=== PATIENT | female | born 1940 | race African-American/Black ===

== ENCOUNTER 2019-07-18 16:29 | Inpatient (IN) | payer MEDICARE, BC ==
[~2019-07-18] VITALS: Ht 157.5 cm; Wt 106.6 kg
[~2019-07-18 16:29] MED LIST: ASPIR 8181 MG ORAL; BLOOD PRESSURE PILL PO; LOVASTATIN40 MG ORAL; METFORMIN HCL500 M1 ORAL; PREVACID30 MG ORAL; [UNRECOGNIZED DRUG - REMARK] PO
[2019-07-18 16:43] VITALS: BP 141/74
--- NOTE | 2019-07-18 16:43 | NUR ---
ED Nurse Note: PT walked in to ED for C/O non radiating intermittent chest pain x 2 days. denies any cough.
[2019-07-18] MEDS ORDERED: VITAMIN D310 MCG ORAL (17:11)
--- NOTE | 2019-07-18 17:35 | NUR ---
ED Nurse Note: blood sample collected and sent to lab. pt unable to provide urine sample at this time.
[2019-07-18 18:05] LABS: EOSINOPHILS % (AUTO) 1.5 % (0.0-3.0); HEMATOCRIT 43.3 % (37.0-47.0); HEMOGLOBIN 13.8 G/DL (12.0-16.0); LYMPHOCYTES % (AUTO) 19.8 % (20.0-45.0); MEAN CORPUSCULAR VOLUME 92 FL (80-99); MONOCYTES % (AUTO) 5.1 % (1.0-10.0); NEUTROPHILS % (AUTO) 72.6 % (45.0-75.0); PLATELET COUNT 262 K/UL (150-450); RED BLOOD COUNT 4.72 M/UL (4.20-5.40); RED CELL DISTRIBUTION WIDTH 15.4 % (11.6-14.8); WHITE BLOOD COUNT 11.7 K/UL (4.8-10.8)
--- NOTE | 2019-07-18 18:07 | Diagnostic Imaging Report ---
Indication: Chest pain Technique: One view of the chest Comparison: 08/24/2015 Findings: There is some scarring or atelectasis at the left lateral lung base. Lungs and pleural spaces are otherwise. The heart size is upper limits of normal Impression: No acute process
[2019-07-18 18:08] LABS: ANION GAP 12 mmol/L (5-15); BLOOD UREA NITROGEN 15 mg/dL (7-18); CALCIUM 9.3 MG/DL (8.5-10.1); CARBON DIOXIDE 24 MMOL/L (21-32); CHLORIDE 103 MMOL/L (98-107); CREATININE 1.2 MG/DL (0.55-1.30); POTASSIUM 3.8 MMOL/L (3.5-5.1); SODIUM 139 MMOL/L (136-145)
[2019-07-18 18:23] LABS: ALANINE AMINOTRANSFERASE 14 U/L (12-78); ALBUMIN 3.2 G/DL (3.4-5.0); ALBUMIN/GLOBULIN RATIO 0.8 (1.0-2.7); ALKALINE PHOSPHATASE 100 U/L (46-116); ASPARTATE AMINO TRANSFERASE 27 U/L (15-37); BILIRUBIN,TOTAL 0.7 MG/DL (0.2-1.0); CKMB 0.8 NG/ML (0.0-3.6); CREATINE KINASE 105 U/L (26-308); FERRITIN 27 NG/ML (8-388)
--- NOTE | 2019-07-18 18:56 | Emergency Room Report ---
History of Present Illness General Chief Complaint: Chest Pain Source: Patient Present Illness HPI 78-year-old female with history of hypothyroidism, type 2 diabetes, and hypertension which taking medication and controlled here complaining 2 days palpitation and chest pain without radiation to the arm and jaw. Rates the pain 10 out of 10 and shortness of breath involved. Patient reports that she started taking methimazole about 6 weeks ago given by her primary doctor as her TSH was falling low due to levothyroxine. Patient used to take metoprolol for palpitation however was recently changed to propranolol by primary doctor patient just picked up the propranolol from the pharmacy today however has not taken it yet. Denies any headache and dizziness. Denies any unilateral generalized weakness. History of WI that occurred 4 years ago and patient currently taking daily dose of aspirin. Up-to-date with cardiology visits. History of tobacco smoke. Denies any tobacco smoke, marijuana use, drug use, or alcohol intake recently. Is afebrile, denies cough and congestion, denies diarrhea, nausea vomiting, loss of taste and smell. Allergies: Coded Allergies: PENICILLINS (Verified Allergy, Intermediate, 07/31/13) SKIN RASH AND HIVES COVID-19 Screening Contact w/high risk pt: No Recent Travel to affected area: No Experienced COVID-19 symptoms?: Yes COVID-19 symptoms experienced: Shortness of Breath COVID-19 Testing performed RN LAB: No COVID-19 Screening: Negative COVID-19 COVID-19 Testing Source: Blood test in may Patient History Past Medical History: see triage record Past Surgical History: none Pertinent Family History: none Social History: Reports: smoking - hx of tobacco smoke Now: No Immunizations: UTD Reviewed Nursing Documentation: PMH: Agreed; PSxH: Agreed Nursing Documentation-PMH Hx Cardiac Problems: Yes - WI, Stent Hx Hypertension: Yes Hx Pacemaker: No Hx Asthma: No Hx COPD: No Hx Diabetes: Yes - DM II Hx Cancer: No Hx Gastrointestinal Problems: Yes Hx Neurological Problems: Yes Review of Systems All Other Systems: negative except mentioned in HPI Physical Exam Vital Signs Date Time Temp Pulse Resp B/P (MAP) Pulse Ox O2 Delivery O2 Flow Rate FiO2 20 16:34 98.4 110 20 135/78 (97) 92 Room Air Sp02 EP Interpretation: reviewed, abnormal - Orthostatic 91% General Appearance: no apparent distress, alert, GCS 15, non-toxic Head: normocephalic, atraumatic Eyes: bilateral eye normal inspection, bilateral eye PERRL ENT: hearing grossly normal, normal pharynx, no angioedema, normal voice Neck: full range of motion, supple, supple/symm/no masses Respiratory: chest non-tender, lungs clear, normal breath sounds, no rhonchi, no retraction, speaking full sentences Cardiovascular #1: regular rate, rhythm, no edema Gastrointestinal: non tender, soft, no mass Rectal: deferred Genitourinary: no CVA tenderness Musculoskeletal: back normal Neurologic: alert, motor strength/tone normal, oriented x3, sensory intact, responsive, speech normal Psychiatric: judgement/insight normal, memory normal, mood/affect normal, no suicidal/homicidal ideation Skin: no rash Lymphatic: no adenopathy Medical Decision Making PA Attestation All my diagnosis and treatment plans were reviewed ad discussed with my supervising physician Dr. Ernandez Diagnostic Impression: Primary Impression: Palpitation Additional Impression: Lymphopenia ER Course 78-year-old female with history of hypothyroidism, type 2 diabetes, and hypertension which taking medication and controlled here complaining 2 days palpitation and chest pain without radiation to the arm and jaw. Rates the pain 10 out of 10 and shortness of breath involved. Patient reports that she started taking methimazole about 6 weeks ago given by her primary doctor as her TSH was falling low due to levothyroxine. Patient used to take metoprolol for palpitation however was recently changed to propranolol by primary doctor patient just picked up the propranolol from the pharmacy today however has not taken it yet. Denies any headache and dizziness. Denies any unilateral generalized weakness. History of WI that occurred 4 years ago and patient currently taking daily dose of aspirin. Up-to-date with cardiology visits. History of tobacco smoke. Denies any tobacco smoke, marijuana use, drug use, or alcohol intake recently. Is afebrile, denies cough and congestion, denies diarrhea, nausea vomiting, loss of taste and smell. Ddx considered but are not limited to: WI, Angina, COPD, GERD,, thyrotoxicosis, coronavirus, pneumonitis Vital signs: are WNL, pt. is afebrile H&PE are most consistent with palpitation, lymphopenia ORDERS: ER chest pain and sepsis order set ED INTERVENTIONS: None required at this time. Patient was admitted with diagnosis of palpitation lymphopenia to Dr. Leigh under supervision of : Awais richardson stable at time of admission EKG Diagnostic Results Rate: normal Rhythm: NSR ST Segments: no acute changes Other Impression No acute ST changes Chest X-Ray Diagnostic Results Chest X-Ray Diagnostic Results : Chest X-Ray Ordered: Yes # of Views/Limited/Complete: 1 View EP Interpretation: Yes PA Xray: Interpretation reviewed, by supervising MD, and agrees with findings. Interpretation: no consolidation, no effusion, no pneumothorax Impression: No acute disease Electronically Signed by: Marisel Jay PA-C Last Vital Signs Date Time Temp Pulse Resp B/P (MAP) Pulse Ox O2 Delivery O2 Flow Rate FiO2 07/18/19 16:43 97 19 Room Air 07/18/19 16:43 98.4 141/74 99 Disposition: ADMITTED INPATIENT Condition: Stable Referrals: Luis Angel Bell MD (PCP) Marisel Preston Jul 18, 2019 18:55
[2019-07-18 19:10] VITALS: BP 132/84
--- NOTE | 2019-07-18 19:10 | NUR ---
ED Nurse Note: Pt seen in bed , no acute distress is noted. VSS as documented.
[2019-07-18 19:51] LABS: APPEARANCE,URINE CLEAR; BILIRUBIN, URINE NEGATIVE (NEGATIVE); NITRITE,URINE NEGATIVE (NEGATIVE)
[2019-07-18 20:07] LABS: GLUCOSE, URINE (UA) NEGATIVE (NEGATIVE); KETONES,URINE 2+ (NEGATIVE); LEUKOCYTE ESTERASE ,URINE 2+ (NEGATIVE); PH,URINE 5 (4.5-8.0); PROTEIN,URINE NEGATIVE (NEGATIVE); UROBILINOGEN,URINE NORMAL MG/DL (0.0-1.0)
[2019-07-18 20:30] LABS: COLOR,URINE YELLOW
[2019-07-18 21:19] VITALS: BP 140/72
--- NOTE | 2019-07-18 21:20 | NUR ---
ED Nurse Note: Pt seen in bed resting, no acute distress is noted. VSS as documented.
--- NOTE | 2019-07-18 22:45 | NUR ---
ED Nurse Note: Report given to JON barnhart.
--- NOTE | 2019-07-18 22:55 | NUR ---
ED Nurse Note: pt taken to room 216 accompanied by manager material and RN in stable condition via gurney with ardiac monitor box. Report given to JON Sifuentes. Belonging list signed off.
--- NOTE | 2019-07-18 23:45 | NUR ---
NURSE NOTES: Received report from GAMA Gao RN. Pt in stable condition, denies pain. Will start plan of care and close monitoring.
[2019-07-19 04:00] VITALS: BP 136/76
[2019-07-19] MEDS: metFORMIN 500mg tab ORAL SCH ×3 (06:24→16:25)
[2019-07-19] MEDS: NovoLOG Insulin Flexpen SUBQ SCH ×4 (06:30→21:00)
[2019-07-19] MEDS ORDERED: NovoLOG Insulin Flexpen SUBQ SCH (06:30)
--- NOTE | 2019-07-19 07:30 | NUR ---
NURSE NOTES: RECEIVED PATIENT A/A/OX4, AMBULATORY WITH STEADY GAIT. NO ACUTE PAIN/DISCOMFORT NOTED. TOLERATING FOOD INTAKE WELL. IV ACCESS PATENT AND INTACT. BED IS IN THE LOWEST POSITION. SIDERAILS ARE UP X2, CALL LIGHT IS WITHIN REACH. WILL CONT TO MONITOR.
--- NOTE | 2019-07-19 07:38 | NUR ---
HAND-OFF: Report given to Crystal Palomares RN. Pt in stable condition. Plan of care endorsed.
[2019-07-19 08:06] VITALS: BP 151/78
[2019-07-19] MEDS: Aspirin EC 81mg tab ORAL SCH (08:15)
[2019-07-19] MEDS: Vitamin D 1000 IU Tab ORAL SCH (08:15)
[2019-07-19] MEDS: Heparin 5000 units/ml inj SUBQ SCH ×2 (08:18→21:00)
[2019-07-19 09:18] LABS: ALANINE AMINOTRANSFERASE 15 U/L (12-78); ALBUMIN/GLOBULIN RATIO 0.8 (1.0-2.7); ALKALINE PHOSPHATASE 93 U/L (46-116); ANION GAP 9 mmol/L (5-15); ASPARTATE AMINO TRANSFERASE 15 U/L (15-37); BLOOD UREA NITROGEN 9 mg/dL (7-18); CALCIUM 8.7 MG/DL (8.5-10.1); CARBON DIOXIDE 27 MMOL/L (21-32); CHLORIDE 105 MMOL/L (98-107); CHOLESTEROL 144 MG/DL (< 200); HDL CHOLESTEROL 50 MG/DL (40-60); POTASSIUM 3.1 MMOL/L (3.5-5.1); SODIUM 141 MMOL/L (136-145); TRIGLYCERIDES 53 MG/DL (30-150)
--- NOTE | 2019-07-19 10:05 | NUR ---
NURSE NOTES: INFORMED DR TAYLOR FOR THE K+3.1 AND MG 1.6 TODAY'S LABS. NEW ORDER OBTAINED AND ENTERED. WILL CONT TO MONITOR.
--- NOTE | 2019-07-19 11:09 | NUR ---
CASE MANAGEMENT:INITIAL REVIEW 78 YR OLD FEMALE FROM HOME CC;CHEST PAIN SI;PALPITATIONS. LYMPHOPENIA. 98.4 110 20 141/74 92% ON RA WBC 11.7 BG 173 BNP 267 ALB 3.2 LDH 336 T SH 25.838 FREE T3 2.0 UA+ KETONES, LEUKOCYTE, WBC TOXICOLOGY ~ NEGATIVE CXR ~ NO ACUTE PROCESS IS;IVF NS BOLUS ADMITTED TO TELEMETRY TELE STATUS DCP;PATIENT IS FROM HOME
[2019-07-19 11:59] VITALS: BP 147/67
--- NOTE | 2019-07-19 13:30 | Consultation ---
DATE OF CONSULTATION: 07/19/2019 PULMONARY CONSULTATION CONSULTING PHYSICIAN: Luis Angel Bell MD REASON FOR ADMISSION: Palpitations, shortness of breath. HISTORY OF PRESENT ILLNESS: This is a 78-year-old female with history of multiple medical problems including history of cardiopulmonary arrest. The patient also with a history of coronary artery disease and stent. The patient presents with tachycardia and palpitations with some chest pain radiating to the arm and jaw. The patient recently diagnosed with hyperthyroidism and started on methimazole by her steel inspector. The patient used to take metoprolol for palpitations that was changed to propranolol. The patient's care discussed and reviewed. The patient denies any headache. No falls. No syncope. As mentioned, the patient has a history of massive PR four years ago, [place] and underwent cardiopulmonary resuscitation and actually survived. The patient otherwise stable. No COVID related symptoms, but the patient does have some shortness of breath. PAST MEDICAL HISTORY: Notable for coronary artery disease, PR, cardiopulmonary arrest, history of coronary artery stent, diabetes, asthma, and history of hyperthyroidism. MEDICATIONS: Reviewed. ALLERGIES: Reviewed. SOCIAL HISTORY: The patient is . She has remote history of smoking. Does not smoke or drink currently. FAMILY HISTORY: Noncontributory to the above. REVIEW OF SYSTEMS: All 10 points were reviewed and otherwise negative. PHYSICAL EXAMINATION: GENERAL: A well-developed female, comfortable at present. VITAL SIGNS: Stable, blood pressure 136/76, pulse 94, respirations 18, temperature 97.9. The patient is off oxygen at present. HEENT: Negative. NECK: Supple. No adenopathy. LUNGS: Fairly clear and symmetric. CARDIAC: S1, S2. Regular rate and rhythm. Soft systolic murmur at left lucero sternal border. ABDOMEN: Soft, nontender, nondistended. EXTREMITIES: No cyanosis, clubbing, or edema. NEUROLOGIC: Grossly nonfocal. LABORATORY DATA: Reviewed. TSH significantly elevated at 25. Free T4 is suppressed. Free T3 is suppressed. Lactic dehydrogenase is 336. Laboratory data reviewed and chemistries are essentially negative. Albumin 3.2. IMPRESSION: History of hyperthyroidism, although currently the patient appears to be hypothyroid overall, palpitations, chest pain with radiation, hypercholesterolemia, and history of coronary artery disease. RECOMMENDATIONS: Serial troponins. Replace thyroid. Discontinue methimazole for now. Beta david and Cardiology evaluation . We will recommend further and discuss and then once stabilized and cleared, we will proceed with discharge planning. Luis Angel Bell M.D. DR: LOLA JOB#: [id number] CC: ARIE
--- NOTE | 2019-07-19 15:01 | NUR ---
NURSE NOTES: RECEIVED A CALL FROM KENNEDY ( JESSICA) REGARDING BLOOD CULTURE RESULT - GRAM POSITIVE COCCI IN CLUSTER. NOTIFIED DR TAYLOR. NEW ORDER OBTAINED. WILL CONT TO MONITOR.
[2019-07-19 15:56] VITALS: BP 156/78
[2019-07-19] MEDS ORDERED: Vancomycin 1.5gm/NS Premix 275 ML IVPB SCH (16:30)
--- NOTE | 2019-07-19 19:19 | NUR ---
HAND-OFF: Report given to Emilee.
--- NOTE | 2019-07-19 19:20 | NUR ---
NURSE NOTES: RECEIVED PATIENT FROM JON GOLD. PT IS AWAKE, ALERT AND ORIENTED X4, AMBULATORY WITH STEADY GAIT. NO ACUTE PAIN/DISCOMFORT NOTED. IV ACCESS PATENT AND INTACT, REMOVED L AC IV IT WAS OUT. BED IS IN THE LOWEST POSITION, LOCKED. SIDERAILS UP X2, CALL LIGHT IS WITHIN REACH. WILL CONT TO MONITOR.
[2019-07-19 20:00] VITALS: BP 138/68
[2019-07-20] VITALS: BP 117/59
[2019-07-20 04:00] VITALS: BP 120/58
--- NOTE | 2019-07-20 05:00 | Progress Note ---
DATE: 07/19/2019 CARDIOLOGY PROGRESS NOTE SUBJECTIVE: The patient has intermittent chest discomfort, but she cannot relate it to the pain she had at the time of her heart attack last year. She notes some palpitations. She has been on beta-david therapy as an outpatient because of her thyroid disease, namely Graves. Monitored rhythm sinus with no ectopy. OBJECTIVE: VITAL SIGNS: Blood pressure 147/67, heart rate 94, respiratory rate 18, afebrile. GENERAL: Jugular venous pressure normal. Chest wall nontender. LUNGS: Clear. CARDIAC: Regular. Normal S1, S2 with no murmur. ABDOMEN: Soft. EXTREMITIES: There is no edema. LABORATORY DATA: Magnesium 1.6. Hemoglobin A1c 6.6. Potassium 3.1. BUN 9, creatinine 1. Troponin 0. Pro-natriuretic peptide 257. Albumin 3. TSH yesterday was 25. IMPRESSION: 1. Acute coronary syndrome. 2. Coronary artery disease with history of coronary stent. 3. Hypokalemia. 4. Hypomagnesemia. 5. Type 2 diabetes, well controlled. 6. Graves disease with elevated TSH due to methimazole. 7. Chronic diastolic congestive heart failure. 8. Hypertensive heart disease. 9. Mild protein-calorie malnutrition. PLAN: 1. Titrate antianginal regimen. Consider endocrine evaluation. 2. Continue anti-platelet therapy. 3. Replace potassium orally and magnesium intravenously. We will consider Lexiscan myocardial perfusion study to assess coronary flow reserve. Ronan Tejada M.D. DR: FRANDY JOB#: [id number] CC:
--- NOTE | 2019-07-20 05:15 | Consultation ---
DATE OF CONSULTATION: 07/18/2019 CARDIOLOGY CONSULTATION CONSULTING PHYSICIAN: Ronan Tejada MD. REQUESTING PHYSICIAN: Luis Angel Bell MD, and Cody Allred MD. REASON FOR CONSULTATION: Palpitations and chest pain in the setting of coronary artery disease. HISTORY OF PRESENT ILLNESS: This is a 78-year-old female. She has a known history of coronary artery disease. She had a heart attack over a year ago with a coronary stent placed. She also was seen at [facility] over a year ago and had a myocardial perfusion scan that was described "is normal." She has been treated medically since. The patient apparently has a prior history of a cardiopulmonary arrest. She recently was started on methimazole for hyperthyroidism due to Graves disease. She complains now of chest pain with radiation to the arm and jaw, although cannot relate it to symptoms noted prior to her stent. She has been on a beta-david due to Graves disease. The patient believes that her cardiopulmonary arrest was associated with her heart attack several years back. PAST MEDICAL HISTORY: 1. Coronary artery disease. 2. History of myocardial infarction. 3. History of coronary stent. 4. Type 2 diabetes mellitus. 5. Hyperthyroidism. 6. Asthma. ALLERGIES: Penicillin. SOCIAL HISTORY: Negative for smoking, alcohol, or substance abuse. FAMILY HISTORY: Noncontributory. MEDICATIONS: Reviewed and reconciled. REVIEW OF SYSTEMS: A 10-point review of systems performed. All systems negative other than noted above. PHYSICAL EXAMINATION: GENERAL: Well developed, well nourished, in no distress. VITAL SIGNS: Blood pressure 141/74, temperature 97, respirations 18, afebrile. Room air oxygen sat 98% to 99%. HEENT: Conjunctivae pink. Sclerae are anicteric. Oropharynx clear. NECK: Supple. Jugular venous pressure normal. No bruits. LUNGS: Clear. CARDIAC: Regular. Normal S1, S2. No murmur rub or gallop. Chest wall with no tenderness. ABDOMEN: Soft, nontender. EXTREMITIES: No edema. NEUROLOGIC: Nonfocal. LABORATORY AND DIAGNOSTIC DATA: EKG revealed sinus rhythm. No acute ST-T wave abnormalities. Troponin is 0. BUN is 15, creatinine 1.2. Potassium 3.8, lactic acid 1.9. Pro-natriuretic peptide 267. Albumin 3.2. TSH 25.8. IMPRESSION: 1. Possible acute coronary syndrome. 2. Palpitations, likely related to thyroid disorder. 3. Chronic diastolic congestive heart failure, compensated. 4. Hypertensive heart disease with controlled blood pressure. 5. History of hyperthyroid state status post methimazole therapy now with hypothyroid state noted. PLAN: 1. Re-dose methimazole. 2. Continue beta-david. 3. Serial troponins. 4. Check electrolytes. 5. Cardiac monitoring. 6. We will consider myocardial perfusion scan for assessment of coronary flow reserve. Ronan Tejada M.D. DR: FRANDY JOB#: [id number] CC:
[2019-07-20] MEDS ORDERED: Lexiscan 0.4mg/5ml syringe IV SCH (06:00)
[2019-07-20] MEDS: NovoLOG Insulin Flexpen SUBQ SCH ×4 (06:30→21:00)
[2019-07-20] MEDS: Propranolol 40mg tab ORAL SCH ×3 (07:14→21:45)
[2019-07-20] MEDS: metFORMIN 500mg tab ORAL SCH ×3 (07:14→17:02)
--- NOTE | 2019-07-20 07:30 | NUR ---
NURSE NOTES: Received report from JON Grossman. Patient found supine in bed, GCS 15, AAO x4. No signs of distress or pain. Denies pain. Breathing regular and unlabored on room air. Radial pulses palpable. L 22 g IV saline locked. IV patent, no redness or signs of infiltrate. Bed low and locked, side rails x2 raised, call light in reach. Plan of care discussed. Will continue to monitor.
--- NOTE | 2019-07-20 07:53 | NUR ---
NURSE NOTES: Pt refused propanolol until she talks to Dr Bell, bc she said Dr Bell told her her thyroid is low.
[2019-07-20 08:00] VITALS: BP 146/87
[2019-07-20 08:04] LABS: ANION GAP 8 mmol/L (5-15); BLOOD UREA NITROGEN 9 mg/dL (7-18); CALCIUM 8.8 MG/DL (8.5-10.1); CARBON DIOXIDE 27 MMOL/L (21-32); CHLORIDE 108 MMOL/L (98-107); POTASSIUM 4.1 MMOL/L (3.5-5.1); SODIUM 143 MMOL/L (136-145)
--- NOTE | 2019-07-20 08:42 | History & Physical ---
History and Physical History & Physicial Patient: EBENEZER SCOTT [facility] Rec #: [id number] Patient No.: [id number] Date of Admission: 07/18/19 Date and time entered: 1940 DATE OF CONSULTATION: 07/19/2019 PULMONARY CONSULTATION CONSULTING PHYSICIAN: Luis Angel Bell MD REASON FOR ADMISSION: Palpitations, shortness of breath. HISTORY OF PRESENT ILLNESS: This is a 78-year-old female with history of multiple medical problems including history of cardiopulmonary arrest. The patient also with a history of coronary artery disease and stent. The patient presents with tachycardia and palpitations with some chest pain radiating to the arm and jaw. The patient recently diagnosed with hyperthyroidism and started on methimazole by her pharmaceutical sales representative. The patient used to take metoprolol for palpitations that was changed to propranolol. The patient's care discussed and reviewed. The patient denies any headache. No falls. No syncope. As mentioned, the patient has a history of massive [place] four years ago, out of the [place] and underwent cardiopulmonary resuscitation and actually survived. The patient otherwise stable. No COVID related symptoms, but the patient does have some shortness of breath. PAST MEDICAL HISTORY: Notable for coronary artery disease, ND, cardiopulmonary arrest, history of coronary artery stent, diabetes, asthma, and history of hyperthyroidism. MEDICATIONS: Reviewed. ALLERGIES: Reviewed. SOCIAL HISTORY: The patient is . She has remote history of smoking. Does not smoke or drink currently. FAMILY HISTORY: Noncontributory to the above. REVIEW OF SYSTEMS: All 10 points were reviewed and otherwise negative. PHYSICAL EXAMINATION: GENERAL: A well-developed female, comfortable at present. VITAL SIGNS: Stable, blood pressure 136/76, pulse 94, respirations 18, temperature 97.9. The patient is off oxygen at present. HEENT: Negative. NECK: Supple. No adenopathy. LUNGS: Fairly clear and symmetric. CARDIAC: S1, S2. Regular rate and rhythm. Soft systolic murmur at border. ABDOMEN: Soft, nontender, nondistended. EXTREMITIES: No cyanosis, clubbing, or edema. NEUROLOGIC: Grossly nonfocal. LABORATORY DATA: Reviewed. TSH significantly elevated at 25. Free T4 is suppressed. Free T3 is suppressed. Lactic dehydrogenase is 336. Laboratory data reviewed and chemistries are essentially negative. Albumin 3.2. IMPRESSION: History of hyperthyroidism, although currently the patient appears to be hypothyroid overall, palpitations, chest pain with radiation, hypercholesterolemia, and history of coronary artery disease. RECOMMENDATIONS: Serial troponins. Replace thyroid. Discontinue methimazole for now. Beta david and Cardiology evaluation . We will recommend further and discuss and then once stabilized and cleared, we will proceed with discharge planning. Luis Angel Bell MD Jul 20, 2019 08:42
--- NOTE | 2019-07-20 08:44 | General Progress Note ---
Assessment/Plan Assessment/Plan: IMPRESSION: History of hyperthyroidism, although currently hypothyroid overall , palpitations, chest pain with radiation, hypercholesterolemia, and history of coronary artery disease. PLAN dc home outpatient ribidium PET maintain same thyroid replacement with caution home health on dc impression, plan, and exam edited and reviewed in detail care discussed with RN Subjective Allergies: Coded Allergies: PENICILLINS (Verified Allergy, Intermediate, 07/31/13) SKIN RASH AND HIVES Subjective comfortable overnight replaced lytes tele reviewed cards noted Objective Last 24 Hour Vital Signs Date Time Temp Pulse Resp B/P (MAP) Pulse Ox O2 Delivery O2 Flow Rate FiO2 07/20/19 07:14 80 120/60 07/20/19 04:00 96.6 77 19 120/58 (78) 98 07/20/19 04:00 80 07/20/19 00:00 98.0 73 18 117/59 (78) 97 07/20/19 00:00 70 07/19/19 22:56 75 138/68 07/19/19 21:00 Room Air 07/19/19 20:00 98.1 75 19 138/68 (91) 94 07/19/19 16:25 63 07/19/19 15:56 97.9 104 18 156/78 (104) 95 07/19/19 12:36 70 07/19/19 11:59 98.1 94 18 147/67 (93) 96 07/19/19 09:30 Room Air Intake and Output 07/19/19 07/20/19 19:00 07:00 Intake Total 1215 ml Balance 1215 ml Intake Oral 740 ml IV Total 475 ml # Voids 4 1 Laboratory Tests 07/20/19 06:50: Sodium Level 143, Potassium Level 4.1, Chloride Level 108H, Carbon Dioxide Level 27, Anion Gap 8, Blood Urea Nitrogen 9, Creatinine 1.0, Estimat Glomerular Filtration Rate > 60, Glucose Level 130H, Calcium Level 8.8, Magnesium Level 2.0 Height (Feet): 5 Height (Inches): 2.00 Weight (Pounds): 235 Objective GENERAL: A well-developed female, comfortable at present. comfortable overnight HEENT: Negative. NECK: Supple. No adenopathy. LUNGS: Fairly clear and symmetric. CARDIAC: S1, S2. Regular rate and rhythm. Soft systolic murmur ABDOMEN: Soft, nontender, nondistended. EXTREMITIES: No cyanosis, clubbing, or edema. NEUROLOGIC: Grossly nonfocal. Luis Angel Bell MD Jul 20, 2019 08:44
--- NOTE | 2019-07-20 08:46 | NUR ---
HAND-OFF: Report given to JON Thomas.
[2019-07-20] MEDS: Aspirin EC 81mg tab ORAL SCH (09:04)
[2019-07-20] MEDS: Vitamin D 1000 IU Tab ORAL SCH (09:04)
[2019-07-20] MEDS: Heparin 5000 units/ml inj SUBQ SCH ×2 (09:07→21:00)
[2019-07-20] MEDS ORDERED: Tubing IV Secondary IV ONE (09:40)
[2019-07-20 12:00] VITALS: BP 122/59
[2019-07-20] MEDS ORDERED: Vancomycin 1.25gm/NS Premix 275 ML IVPB SCH (12:00)
[2019-07-20 15:57] VITALS: BP 112/69
--- NOTE | 2019-07-20 17:26 | NUR ---
NURSE NOTES: Patient c/o acid reflux. Raised HOB, pt. states no improvement. Dr. Bell notified. Received order from for Mylanta 30 mL Q4H PRN. Order acknowledged and carried out.
--- NOTE | 2019-07-20 19:35 | NUR ---
NURSE NOTES: Reported off to JON Grossman.
--- NOTE | 2019-07-20 19:45 | NUR ---
NURSE NOTES: Nurse received from JON Thomas. Patient's awake and in bed, AO x 4, denies pain, denies chest pain, breathing regular and unlabored, no s/s of distress or SOB, Bed low and locked, call light within reach, side rails x2, ambulates steadily. Informed that patient has lexiscan this morning and patient is aware, and has not been eating or drinking, especially chocolate, tea or coffee, NPO except meds. IV is saline locked, flushed and patent. Will continue to monitor.
[2019-07-20 20:00] VITALS: BP 142/71
[2019-07-21] VITALS: BP 136/74
--- NOTE | 2019-07-21 | Progress Note ---
DATE: 07/20/2019 CARDIOLOGY PROGRESS NOTE SUBJECTIVE: No chest pain or palpitations overnight. Monitored rhythm sinus. Rare atrial ectopics. PHYSICAL EXAMINATION: VITAL SIGNS: Blood pressure parameters controlled 117/59 to 156/78, heart rate 63 to 104, respiratory rate 18, afebrile. LUNGS: Clear. No chest wall tenderness. CARDIAC: Regular. Normal S1, S2 with a 1/6 systolic murmur at base. ABDOMEN: Soft. EXTREMITIES: No edema. LABORATORY DATA: Blood cultures negative. Sodium 143, potassium 4.1, bicarb 27, BUN 9, creatinine 1.0, magnesium 2.0. IMPRESSION: 1. Hypomagnesemia, corrected. 2. Coronary artery disease with history of coronary stent and unstable anginal pattern on admission. 3. Hypertensive urgency, corrected. 4. Chronic diastolic congestive heart failure. 5. Mild protein-calorie malnutrition. 6. Hyperthyroidism, on therapy and now hypothyroidism, resolved. PLAN: 1. Continue anti-platelet therapy, statin drug, and beta-david. 2. Myocardial perfusion scan to assess coronary flow reserve. 3. Endocrine input regarding appropriate thyroid therapy and dosing. 4. Continue current antihypertensive regimen without change. Ronan Tejada M.D. DR: Latrice JOB#: [id number] CC:
[2019-07-21 04:00] VITALS: BP 125/65
[2019-07-21] MEDS ORDERED: Lexiscan 0.4mg/5ml syringe IV PRN (06:00)
[2019-07-21] MEDS: NovoLOG Insulin Flexpen SUBQ SCH ×4 (06:30→21:00)
[2019-07-21] MEDS: metFORMIN 500mg tab ORAL SCH ×3 (07:25→16:30)
[2019-07-21] MEDS: Propranolol 40mg tab ORAL SCH ×3 (07:25→22:03)
--- NOTE | 2019-07-21 07:45 | NUR ---
NURSE NOTES: Nurse report given by JON Hebert. Patient's awake and in bed, AO x 4, denies pain, denies chest pain, breathing regular and unlabored, no s/s of distress or SOB, Bed low and locked, call light within reach, side rails x2, ambulates steady. Informed that patient has lexiscan this morning and patient is aware, and has not been eating or drinking, especially chocolate, tea or coffee. IV is saline locked, flushed and patent. Will continue to monitor.
--- NOTE | 2019-07-21 07:59 | NUR ---
CARDIOLOGY For Lexiscan stress test: The cyber workforce developer and manager on panel today - Dr. Stevens informed me he would come at 2pm to do the test.
[2019-07-21 08:00] VITALS: BP 125/80
--- NOTE | 2019-07-21 08:03 | General Progress Note ---
Assessment/Plan Assessment/Plan: IMPRESSION: History of hyperthyroidism, although currently hypothyroid overall , palpitations, chest pain with radiation, hypercholesterolemia, and history of coronary artery disease. PLAN dc home pending stress test lexiscan today maintain same thyroid replacement with caution home health on dc await results dc vanco as bcx likely contaminant impression, plan, and exam edited and reviewed in detail care discussed with RN Subjective Allergies: Coded Allergies: PENICILLINS (Verified Allergy, Intermediate, 07/31/13) SKIN RASH AND HIVES Subjective comfortable overnight bcx likely contaminant tele reviewed cards noted Objective Last 24 Hour Vital Signs Date Time Temp Pulse Resp B/P (MAP) Pulse Ox O2 Delivery O2 Flow Rate FiO2 07/21/19 07:25 64 125/65 07/21/19 04:00 64 07/21/19 04:00 97.6 72 16 125/65 (85) 98 07/21/19 00:00 98.2 82 15 136/74 (94) 97 07/21/19 00:00 68 07/20/19 21:45 96 118/69 07/20/19 21:00 Room Air 07/20/19 20:00 135 07/20/19 20:00 98.0 79 17 142/71 (94) 97 07/20/19 16:00 96 07/20/19 15:57 98.1 97 18 112/69 (83) 96 07/20/19 13:29 80 122/59 07/20/19 12:00 98.1 80 18 122/59 (80) 96 07/20/19 12:00 70 07/20/19 09:55 Room Air Intake and Output 07/20/19 07/21/19 19:00 07:00 Intake Total 760 ml Balance 760 ml Intake Oral 760 ml # Voids 6 2 # Bowel Movements 1 Height (Feet): 5 Height (Inches): 2.00 Weight (Pounds): 235 Objective GENERAL: A well-developed female, comfortable at present. comfortable overnight HEENT: Negative. NECK: Supple. No adenopathy. LUNGS: Fairly clear and symmetric. CARDIAC: S1, S2. Regular rate and rhythm. Soft systolic murmur ABDOMEN: Soft, nontender, nondistended. EXTREMITIES: No cyanosis, clubbing, or edema. NEUROLOGIC: Grossly nonfocal. Luis Angel Bell MD Jul 21, 2019 08:03
--- NOTE | 2019-07-21 08:24 | NUR ---
HAND-OFF: Report given to JON Thomas.
[2019-07-21] MEDS: Heparin 5000 units/ml inj SUBQ SCH ×2 (09:00→22:01)
[2019-07-21] MEDS: Vitamin D 1000 IU Tab ORAL SCH (09:26)
[2019-07-21] MEDS: Aspirin EC 81mg tab ORAL SCH (09:26)
[2019-07-21 09:48] LABS: EOSINOPHILS % (AUTO) 2.8 % (0.0-3.0); HEMATOCRIT 36.9 % (37.0-47.0); HEMOGLOBIN 12.9 G/DL (12.0-16.0); LYMPHOCYTES % (AUTO) 24.4 % (20.0-45.0); MEAN CORPUSCULAR VOLUME 85 FL (80-99); MONOCYTES % (AUTO) 6.4 % (1.0-10.0); NEUTROPHILS % (AUTO) 65.4 % (45.0-75.0); PLATELET COUNT 222 K/UL (150-450); RED BLOOD COUNT 4.32 M/UL (4.20-5.40); RED CELL DISTRIBUTION WIDTH 13.2 % (11.6-14.8); WHITE BLOOD COUNT 8.6 K/UL (4.8-10.8)
--- NOTE | 2019-07-21 09:51 | NUR ---
*-*DISCHARGE PLANNING*-* PATIENT HAS BEEN REFERRED TO: [facility] P: [phone] F: [phone] Addendum: 07/21/19 at 1324 by DESTINEE GALINDO CM *-*DISCHARGE PLANNING*-* PATIENT HAS BEEN REFERRED TO: [facility] [place] P: [phone] [facility] PATIENT UPON DISCHARGE.
[2019-07-21 12:00] VITALS: BP 129/83
[2019-07-21 16:00] VITALS: BP_SYST 100; BP_SYST 120; BP_DIAS 56
--- NOTE | 2019-07-21 18:15 | Diagnostic Imaging Report ---
Indications: Chest pain Technique: Single day single isotope protocol utilized. Initially, resting images obtained using IV administration 10 millicuries 99M technetium Myoview. Subsequently, patient underwent lexiscan stress testing. See cardiology report for details. During Lexiscan infusion, IV administration 31.6 mCi 99m technetium Myoview. SPECT and planar images obtained. SPECT images gated to 8 phases of the cardiac cycle were also obtained, and reformatted into cine images for evaluation of ejection fraction. Comparison: none Findings: Presence or absence of symptoms during infusion is not reported on the cardiology report. Per cardiology report, resting EKG demonstrates sinus rhythm with aberrant premature contractions. The presence or absence of ST changes is not described. Imaging demonstrates subtle decreased perfusion near the apex which does not change on the resting images. No reversible perfusion defects are demonstrated. Normal left ventricular chamber size. Calculated post stress ejection fraction 56%. No focal wall motion abnormality demonstrated. Impression: Nonischemic clinical response to pharmacologic stress, per cardiology report Nonischemic electrocardiographic response to pharmacologic stress, per cardiology report No imaging findings to suggest ischemia, at level of stress achieved.. Equivocal fixed apical defect could represent a small infarct, but could also represent physiologic apical thinning or soft tissue artifact Calculated post stress ejection fraction 50s%
--- NOTE | 2019-07-21 19:17 | NUR ---
HAND-OFF: Report given to JON Pedroza. Patient's stable, plan of care endorsed.
--- NOTE | 2019-07-21 19:30 | NUR ---
NURSE NOTES: Received report from JON hTomas. Patient is awake, alert and oriented x 4. On room air with no shortness of breath reported. Patient is on CCHO (Low) no added salt, instructed and amenable. telemetry monitor is on shows Sinus rhythm with no chest pain or any discomfort noted at this time. IV site is on left hand G-22 saline lock that is patent and intact. Safety measures in placed, bed in lowest and lock position, bed alarm is on, side rails up x 2. Call light and bedside table within reach, will continue plan of care.
[2019-07-21 20:00] VITALS: BP 139/79
--- NOTE | 2019-07-21 23:00 | NUR ---
Received report from nurse Shakira WEBB. Patient awake and resting on bed w/o complaints of discomfort at this time. Bed at its its lowest and locked. Call light w/in easy reach. Continue to monitor pt.
--- NOTE | 2019-07-21 23:15 | Progress Note ---
DATE: 07/21/2019 CARDIOLOGY PROGRESS NOTE SUBJECTIVE: No chest pain. No shortness of breath. Some palpitation. PHYSICAL EXAMINATION: VITAL SIGNS: Blood pressure 120/56, pulse 79, respiratory rate 20, afebrile. NECK: Jugular venous pressure normal. LUNGS: Clear. CARDIAC: Regular. Normal S1, S2 with a fourth heart sound. ABDOMEN: Soft. EXTREMITIES: No edema. LABORATORY DATA: Myocardial perfusion scan, normal ejection fraction, apical thinning, no reversible defect. IMPRESSION: 1. Palpitations likely due to thyroid disorder. The patient had hyperthyroidism earlier, now it appears to be hypothyroid with therapy, TSH is 25. 2. Coronary artery disease with history of coronary stents now with no signs of flow-limiting coronary disease. 3. Hypertensive heart disease with controlled blood pressure. PLAN: 1. Outpatient Endocrine followup is planned. 2. Maintain current cardiovascular regimen without change. 3. Continue anti-platelet therapy and statin drug. Ronan Tejada M.D. DR: Ramonita JOB#: [id number] CC:
[2019-07-22] VITALS: BP 125/65
[2019-07-22 05:00] VITALS: BP 138/66
[2019-07-22] MEDS: Propranolol 40mg tab ORAL SCH (06:00)
[2019-07-22] MEDS: NovoLOG Insulin Flexpen SUBQ SCH ×2 (06:30→11:30)
[2019-07-22] MEDS: metFORMIN 500mg tab ORAL SCH ×2 (06:50→11:24)
--- NOTE | 2019-07-22 07:45 | NUR ---
NURSE NOTES: pt in bed AOx4 will be DC later on in the day today, no complains of pain. Pt on owner e commerce company no signs of cardiac or respiratory distress. Call light within reach, bed in locked in lowest position. will continue to monitor.
--- NOTE | 2019-07-22 07:57 | NUR ---
HAND-OFF: Report given to nurse Guevara. Patient resting on bed and in no distress.
[2019-07-22 08:00] VITALS: BP 151/71
--- NOTE | 2019-07-22 08:36 | General Progress Note ---
Assessment/Plan Assessment/Plan: IMPRESSION: History of hyperthyroidism, although currently hypothyroid overall , palpitations, chest pain with radiation, hypercholesterolemia, and history of coronary artery disease. PLAN dc home lexiscan noted maintain same thyroid replacement needed; discussed results home health on dc bcx contaminant impression, plan, and exam edited and reviewed in detail care discussed with RN Subjective Allergies: Coded Allergies: PENICILLINS (Verified Allergy, Intermediate, 07/31/13) SKIN RASH AND HIVES Subjective comfortable overnight stress results reviewed tele reviewed cards noted Objective Last 24 Hour Vital Signs Date Time Temp Pulse Resp B/P (MAP) Pulse Ox O2 Delivery O2 Flow Rate FiO2 07/22/19 06:00 62 145/70 07/22/19 05:00 97.9 65 18 138/66 (90) 98 07/22/19 04:00 62 07/22/19 00:00 65 07/22/19 00:00 96.5 68 20 125/65 (85) 96 07/21/19 22:03 70 128/61 07/21/19 21:00 Room Air 07/21/19 20:00 68 07/21/19 20:00 99.5 75 20 139/79 (99) 99 07/21/19 16:00 96.2 79 20 120/56 (77) 96 07/21/19 16:00 76 07/21/19 14:28 83 129/83 07/21/19 12:00 98.6 83 19 129/83 (98) 97 07/21/19 12:00 64 07/21/19 09:00 Room Air Intake and Output 07/21/19 07/22/19 19:00 07:00 Intake Total 550 ml 360 ml Balance 550 ml 360 ml Intake Oral 550 ml 360 ml # Voids 2 Laboratory Tests 07/21/19 08:55: White Blood Count 8.6, Red Blood Count 4.32, Hemoglobin 12.9, Hematocrit 36.9L, Mean Corpuscular Volume 85, Mean Corpuscular Hemoglobin 29.9, Mean Corpuscular Hemoglobin Concent 35.0, Red Cell Distribution Width 13.2, Platelet Count 222, Mean Platelet Volume 7.4, Neutrophils (%) (Auto) 65.4, Lymphocytes (%) (Auto) 24.4, Monocytes (%) (Auto) 6.4, Eosinophils (%) (Auto) 2.8, Basophils (%) (Auto ) 1.0 Height (Feet): 5 Height (Inches): 2.00 Weight (Pounds): 235 Objective GENERAL: A well-developed female, comfortable at present. comfortable overnight HEENT: Negative. NECK: Supple. No adenopathy. LUNGS: Fairly clear and symmetric. CARDIAC: S1, S2. Regular rate and rhythm. Soft systolic murmur ABDOMEN: Soft, nontender, nondistended. EXTREMITIES: No cyanosis, clubbing, or edema. NEUROLOGIC: Grossly nonfocal. Luis Angel Bell MD Jul 22, 2019 08:36
[2019-07-22] MEDS: Aspirin EC 81mg tab ORAL SCH (10:07)
[2019-07-22] MEDS: Heparin 5000 units/ml inj SUBQ SCH (10:07)
[2019-07-22] MEDS: Vitamin D 1000 IU Tab ORAL SCH (10:07)
[2019-07-22 12:00] VITALS: BP 164/84
[2019-07-22 12:50] VITALS: BP 128/64
--- NOTE | 2019-07-22 13:17 | NUR ---
NURSE NOTES: reported to Dr Bell that after HT med ordered of clonidine 0.1 PO was given, pt B/p after is now 128/64 hr 66. Pt chest tightness is still present but no SOB. Pt is sitting at bedside comfortably eating lunch. Per docsteve Loja pt is ok to be DC today. EKG was done and was also sent for doctor's Purvi, no new orders were given, pt is ok to be DC home with home health.
--- NOTE | 2019-07-22 13:35 | Diagnostic Imaging Report ---
Indication: Reason For Exam: DVT Technique: Grayscale and duplex images of the bilateral lower extremity veins Comparison: Findings: Bilaterally, grayscale and duplex images demonstrate no evidence of intraluminal thrombus. Normal phasic Doppler waveforms, demonstrating normal augmentation response and no evidence of valvular insufficiency. Greater saphenous vein(s) and tibial veins are patent. Normal compressibility. Impression: Negative for evidence of lower extremity deep venous thrombosis bilaterally
--- NOTE | 2019-07-22 14:00 | NUR ---
NURSE NOTES: pt was Dc via private vehicle with . Pt left in stable condition. discharge orders were explained to pt and pt verbalized understanding, she will be making follow up appt. with doctor. Pt does not wish to have HH, at this time but will speak to her about it. Pt medication to continue home was explained to pt. pt understand and verbalized she will continue to take meds once she gets home. Pt took all belonging with her including cell ph. oil burner journeyman was DC. Iv was DC no bleeding noted on IV site
--- NOTE | 2019-07-23 06:15 | Progress Note ---
DATE: 07/22/2019 CARDIOLOGY PROGRESS NOTE SUBJECTIVE: The patient has no distress. Myocardial perfusion scan revealed apical thinning, normal ejection fraction. No signs of flow-limiting coronary disease. This was discussed in detail with the patient. She was made aware of the possibility of microvascular disease causing symptoms in the future. She was advised as to therapeutic intervention such as nitrates as needed and continuation of current cardiovascular regimen. PHYSICAL EXAMINATION: VITAL SIGNS: Blood pressure 138/66, pulse 65, respiratory rate 18. LUNGS: Clear. CARDIAC: Regular. ABDOMEN: Soft. EXTREMITIES: No edema. IMPRESSION: 1. Stable angina. No signs of flow-limiting coronary disease. 2. Hyperthyroidism and presently hypothyroidism, on therapy. 3. Hyperlipidemia. 4. History of coronary stent. 5. Stable angina. PLAN: 1. Continue medical management. 2. Current cardiovascular regimen reviewed. 3. Outpatient endocrine consultation and adjustment of thyroid regimen. 4. Discussed with primary care physician. Ronan Tejada M.D. DR: DEANNA JOB#: [id number] CC:
--- NOTE | 2019-07-24 08:24 | Discharge Summary ---
Discharge Summary Discharge Summary _ DATE OF ADMISSION: 07/18/2019 DATE OF DISCHARGE: 07/22/2019 DISCHARGED BY: Dr. Bell REASON FOR ADMISSION: 78 years old female with past medical history of coronary artery disease, myocardial infarction, status post cardiopulmonary arrest, history of coronary artery stent, diabetes mellitus, hypothyroidism, presented to emergency department with chest pain radiating to her arm and jaw palp and palpitation. Patient was recently diagnosed with hyperthyroidism and started on methimazole by her aquaculture farm manager. Patient used to take metoprolol for palpitation which was changed to propranolol. Laboratory work-up revealed mild leukocytosis with WBC 11.7 stable hemoglobin hematocrit and platelet count. Lymphopenia with lymphocyte percentage 19.8 noted. Stable electrolytes and renal parameters. Glucose 173. Lactic acid 1.9. Troponin negative. proBNP 267. Albumin 3.2. TSH elevated 25.8 with low free T4 0.59 and low free T3 2.0. Stable INR and d-dimer. Urinalysis revealed +2 leukocyte esterase borderline pyuria and few bacteria. Urine toxicology screen was negative. Chest x-ray demonstrated no acute cardiopulmonary pathology. EKG revealed sinus tachycardia with a heart rate of 110. In emergency department patient started on IV fluids admitted for further management CONSULTANTS: resistor tester [facility]SE: Patient admitted to telemetry floor. Venous duplex bilateral lower extremity revealed no evidence of acute DVT. Repeated troponin was negative as well. EKG revealed sinus rhythm no acute ischemic changes . Patient was ruled out for acute myocardial infarction. Methimazole dose was adjusted based on elevated TSH and low T3 and T4. Beta-blockade continued. Patient subsequently undergone myocardial perfusion scan test, which revealed no imaging findings to suggest ischemia at level of stress achieved. Fixed equivocal apical defect , representing a small infarct noted. Calculated ejection fraction 50%. Yard Hand reviewed current cardiovascular regimen and optimized it. Aspirin and statin continued. Beta-blockade continued. Per resistor tester patient had a stable angina. No evidence of flow-limiting coronary disease. Blood pressure was controlled. Palpitations were likely due to thyroid disease. Supplemental oxygen was on board as needed to keep pulse oximetry above 92%. Pulmonary toilet provided as needed. SARS COV 2 on 07/17 was not detected. Blood culture 1 out of 2 revealed Staph hominis likely contaminant. Initial mild leukocytosis resolved. Hemoglobin and hematocrit remained stable. DVT and GI prophylaxis provided. Patient clinically stabilized and was ready for discharge home . FINAL DIAGNOSES: Palpitations, likely due to uncontrolled thyroid disease History of hypothyroidism with current hypothyroidism Coronary artery disease History of coronary artery stent History of AR Chest pain/Angina - stable Hypertensive heart disease Hyperlipidemia DISCHARGE MEDICATIONS: See Medication Reconciliation list. DISCHARGE INSTRUCTIONS: Patient was discharged home with home health services. Follow up with primary care provider in one week. Folloe up with aquaculture farm manager. I have been assigned to dictate discharge summary for this account. I was not involved in the patient's management. Sruthi Leyva NP Jul 24, 2019 08:24
== END 2019-07-22 14:00 | disposition home health service (06) | DRG 644 ==
LOC: EMR 16:55 → 2E 19:30 → EDBEDREQ 22:25 → 2E 23:00
DX: E05.00 Thyrotoxicosis with diffuse goiter without thyrotoxic crisis or storm (principal); I50.32 Chronic diastolic (congestive) heart failure; E44.1 Mild protein-calorie malnutrition; Z68.41 Body mass index [BMI] 40.0-44.9, adult; R00.2 Palpitations; D72.810 Lymphocytopenia; E87.6 Hypokalemia; I11.0 Hypertensive heart disease with heart failure; I25.118 Atherosclerotic heart disease of native coronary artery with other forms of angina pectoris; I25.2 Old myocardial infarction; Z95.5 Presence of coronary angioplasty implant and graft; E11.9 Type 2 diabetes mellitus without complications; J45.909 Unspecified asthma, uncomplicated; Z88.0 Allergy status to penicillin; E78.00 Pure hypercholesterolemia, unspecified; E83.42 Hypomagnesemia
CPT/HCPCS: 36415; 71045; 78452; 80048; 80053; 80061; 80307; 81003; 82550; 82553; 82728; 82962; 83036; 83605; 83615; 83735; 83880; 84439; 84443; 84481; 84484; 85025; 85379; 85610; 85730; 86140; 87040; 87181; 93005; 93017; 93970; 96360; 99285; J1815; J2785; J8499

== ENCOUNTER 2019-07-27 11:03 | Emergency (ER) | payer MEDICARE, BC ==
[~2019-07-27] VITALS: Ht 162.6 cm; Wt 104.3 kg
[~2019-07-27 11:03] MED LIST changes: +VITAMIN D310 MCG ORAL
[2019-07-27 11:20] VITALS: BP 148/78
--- NOTE | 2019-07-27 11:20 | NUR ---
ED Nurse Note: Pt walked in from home d/t intermittent sternal tightness x 2 days, but got worse last night. Pt was seen @ [facility] on sunday for same symptoms. Respirations even and unlabored on room air. Vitals stable as documented. O2 saturation 92%.
[2019-07-27 11:40] LABS: HEMATOCRIT 44.2 % (37.0-47.0); HEMOGLOBIN 14.1 G/DL (12.0-16.0); MEAN CORPUSCULAR VOLUME 94 FL (80-99); PLATELET COUNT 310 K/UL (150-450); RED BLOOD COUNT 4.71 M/UL (4.20-5.40); RED CELL DISTRIBUTION WIDTH 15.6 % (11.6-14.8); WHITE BLOOD COUNT 10.4 K/UL (4.8-10.8)
[2019-07-27 11:54] LABS: ANION GAP 10 mmol/L (5-15); BLOOD UREA NITROGEN 14 mg/dL (7-18); CALCIUM 9.3 MG/DL (8.5-10.1); CARBON DIOXIDE 26 MMOL/L (21-32); CHLORIDE 105 MMOL/L (98-107); CREATININE 1.2 MG/DL (0.55-1.30); POTASSIUM 3.8 MMOL/L (3.5-5.1); SODIUM 141 MMOL/L (136-145)
[2019-07-27 12:06] LABS: APPEARANCE,URINE CLEAR; BILIRUBIN, URINE NEGATIVE (NEGATIVE); GLUCOSE, URINE (UA) 3+ (NEGATIVE); KETONES,URINE 1+ (NEGATIVE); LEUKOCYTE ESTERASE ,URINE 2+ (NEGATIVE); NITRITE,URINE NEGATIVE (NEGATIVE); PH,URINE 5 (4.5-8.0); PROTEIN,URINE NEGATIVE (NEGATIVE); UROBILINOGEN,URINE NORMAL MG/DL (0.0-1.0)
[2019-07-27 12:06] LABS: ALANINE AMINOTRANSFERASE 18 U/L (12-78); ALBUMIN 3.3 G/DL (3.4-5.0); ALBUMIN/GLOBULIN RATIO 0.8 (1.0-2.7); ALKALINE PHOSPHATASE 102 U/L (46-116); ASPARTATE AMINO TRANSFERASE 16 U/L (15-37); BILIRUBIN,TOTAL 0.7 MG/DL (0.2-1.0)
[2019-07-27 12:07] LABS: COLOR,URINE YELLOW
[2019-07-27] MEDS ORDERED: FAMOTIDINE20 MG ORAL (12:15)
[2019-07-27 12:45] VITALS: BP 144/74
--- NOTE | 2019-07-27 12:45 | NUR ---
ER DISCHARGE NOTE: Patient is cleared to be discharged per ERMD, pt is aox4, on room air, with stable vital signs. pt was given dc and prescription instructions, pt was able to verbalize understanding, pt id band and iv site removed without complications. pt is able to ambulate with steady gait. pt took all belongings.
--- NOTE | 2019-07-27 13:00 | Diagnostic Imaging Report ---
EXAM: XR Chest, 1 View CLINICAL HISTORY: CP TECHNIQUE: Frontal view of the chest. COMPARISON: Chest radiograph on 07/18/2019 FINDINGS: Hardware: None. Lungs/pleura: Slightly increased elevation of the right hemidiaphragm. Probable subsegmental atelectasis or scarring in the left lower lung. Right basilar atelectasis. No focal consolidation. No pleural effusion or pneumothorax. Heart/mediastinum: Stable mild enlargement of the cardiac silhouette. Soft tissues: Unremarkable. Bones: No acute fracture. Upper abdomen: Normal. IMPRESSION: Probable subsegmental atelectasis or scarring in the left lower lung, similar compared to prior exam. Right basilar atelectasis. No focal consolidation.
--- NOTE | 2019-07-29 13:48 | Emergency Room Report ---
History of Present Illness General Chief Complaint: Chest Pain Present Illness HPI Patient is a 78-year-old female who presents after increased chest discomfort. She reports of increased pressure-like sensation to her chest. Onset of symptoms last night. Had recent hospitalization for similar symptoms. Prior history of hypothyroidism and had recent had her medications adjusted. She reports having prior history of coronary artery disease and had previous cardiac stress testing at last hospitalization. Denies any fever. Had no recent increased cough. Reports having some burning sensation to the upper abdomen and chest. Denies any vomiting or bloody stools. Allergies: Coded Allergies: PENICILLINS (Verified Allergy, Intermediate, 07/31/13) SKIN RASH AND HIVES COVID-19 Screening Contact w/high risk pt: No Recent Travel to affected area: No Experienced COVID-19 symptoms?: No COVID-19 symptoms experienced: Shortness of Breath COVID-19 Testing performed FILM PROCESSING SUPERVISOR: No Patient History Past Medical History: see triage record Reviewed Nursing Documentation: PMH: Agreed; PSxH: Agreed Nursing Documentation-PMH Hx Cardiac Problems: Yes - heart attack Hx Hypertension: Yes Hx Pacemaker: No Hx Asthma: No Hx COPD: No Hx Diabetes: Yes Hx Cancer: No Hx Gastrointestinal Problems: No - thyroid problem Hx Neurological Problems: No Review of Systems All Other Systems: negative except mentioned in HPI Physical Exam Vital Signs Date Time Temp Pulse Resp B/P (MAP) Pulse Ox O2 Delivery O2 Flow Rate FiO2 07/27/19 11:07 98.4 89 18 151/75 (100) 91 Room Air Sp02 EP Interpretation: reviewed, normal General Appearance: normal inspection, well appearing, no apparent distress, alert, GCS 15 Head: atraumatic ENT: normal ENT inspection, hearing grossly normal, normal voice Neck: normal inspection, full range of motion, supple, no bony tend Respiratory: normal inspection, lungs clear, normal breath sounds, no respiratory distress, no retraction, no wheezing Cardiovascular #1: regular rate, rhythm, no edema Gastrointestinal: normal inspection, normal bowel sounds, non tender, soft, no guarding, no hernia Genitourinary: no CVA tenderness Musculoskeletal: normal inspection, back normal, normal range of motion Neurologic: alert, motor strength/tone normal, reporting process consultant III-XII nml as tested, oriented x3, responsive, speech normal, normal inspection Psychiatric: normal inspection, judgement/insight normal, mood/affect normal Medical Decision Making Diagnostic Impression: Primary Impression: Reflux esophagitis ER Course Patient presented for chest discomfort. Differential diagnosis include was not limited to arrhythmia, unstable angina, pneumonia, myocardial infarction among others. Because of complexity of patient's case laboratory tests and imaging studies were ordered. Patient did have recent stress testing which did not show any evidence of reversible cardiac lesion. Patient's EKG is essentially unchanged from previous. Laboratory testing showed negative troponin. Chest x- ray was unremarkable. Patient's symptoms are consistent with esophageal reflux.Patient stated she will follow-up with her geodetic technician. Patient had a previously scheduled appointment. Thyroid studies were unremarkable and showed improvement from previous exams. Patient does not appear to be in any respiratory distress and appears to be stable for close outpatient follow-up. Patient is advised to return if she had any worsening condition or other concerns. This medical record is generated with [employer] grinding operator software. There may be some grinding operator discrepancies related to use of this software Labs Test 07/27/19 11:27 07/27/19 11:34 White Blood Count 10.4 K/UL (4.8-10.8) Red Blood Count 4.71 M/UL (4.20-5.40) Hemoglobin 14.1 G/DL (12.0-16.0) Hematocrit 44.2 % (37.0-47.0) Mean Corpuscular Volume 94 FL (80-99) Mean Corpuscular Hemoglobin 29.8 PG (27.0-31.0) Mean Corpuscular Hemoglobin Concent 31.8 G/DL (32.0-36.0) Red Cell Distribution Width 15.6 % (11.6-14.8) Platelet Count 310 K/UL (150-450) Mean Platelet Volume 9.0 FL (6.5-10.1) Neutrophils (%) (Auto) % (45.0-75.0) Lymphocytes (%) (Auto) % (20.0-45.0) Monocytes (%) (Auto) % (1.0-10.0) Eosinophils (%) (Auto) % (0.0-3.0) Basophils (%) (Auto) % (0.0-2.0) Differential Total Cells Counted 100 Neutrophils % (Manual) 81 % (45-75) Lymphocytes % (Manual) 14 % (20-45) Monocytes % (Manual) 5 % (1-10) Eosinophils % (Manual) 0 % (0-3) Basophils % (Manual) 0 % (0-2) Band Neutrophils 0 % (0-8) Platelet Estimate Adequate Platelet Morphology Normal Anisocytosis 1+ Sodium Level 141 MMOL/L (136-145) Potassium Level 3.8 MMOL/L (3.5-5.1) Chloride Level 105 MMOL/L (98-107) Carbon Dioxide Level 26 MMOL/L (21-32) Anion Gap 10 mmol/L (5-15) Blood Urea Nitrogen 14 mg/dL (7-18) Creatinine 1.2 MG/DL (0.55-1.30) Estimat Glomerular Filtration Rate 52.5 mL/min (>60) Glucose Level 166 MG/DL (74-106) Calcium Level 9.3 MG/DL (8.5-10.1) Total Bilirubin 0.7 MG/DL (0.2-1.0) Aspartate Amino Transf (AST/SGOT) 16 U/L (15-37) Alanine Aminotransferase (ALT/SGPT) 18 U/L (12-78) Alkaline Phosphatase 102 U/L (46-116) Troponin I 0.000 ng/mL (0.000-0.056) Pro-B-Type Natriuretic Peptide 419 pg/mL (0-125) Total Protein 7.3 G/DL (6.4-8.2) Albumin 3.3 G/DL (3.4-5.0) Globulin 4.0 g/dL Albumin/Globulin Ratio 0.8 (1.0-2.7) Lipase 148 U/L (73-393) Thyroid Stimulating Hormone (TSH) 4.578 uiU/mL (0.358-3.740) Free Thyroxine 0.86 NG/DL (0.76-1.46) Urine Color Yellow Urine Appearance Clear Urine pH 5 (4.5-8.0) Urine Specific Brick 1.010 (1.005-1.035) Urine Protein Negative (NEGATIVE) Urine Glucose (UA) 3+ (NEGATIVE) Urine Ketones 1+ (NEGATIVE) Urine Blood Negative (NEGATIVE) Urine Nitrite Negative (NEGATIVE) Urine Bilirubin Negative (NEGATIVE) Urine Urobilinogen Normal MG/DL (0.0-1.0) Urine Leukocyte Esterase 2+ (NEGATIVE) Urine RBC 0 /HPF (0 - 2) Urine WBC 2-4 /HPF (0 - 2) Urine Squamous Epithelial Cells Few /LPF (NONE/OCC) Urine Bacteria Few /HPF (NONE) Urine Mucus Few /LPF (NONE/OCC) Last Vital Signs Date Time Temp Pulse Resp B/P (MAP) Pulse Ox O2 Delivery O2 Flow Rate FiO2 07/27/19 12:45 98.0 72 18 144/74 96 Room Air Status: improved Disposition: HOME, SELF-CARE Condition: Stable Scripts Famotidine* (Pepcid 20mg tablet*) 20 Mg Tablet 20 MG ORAL DAILY, #30 TAB 0 Refills Prov: Diego Ernandez MD 07/27/19 Patient Instructions: Nonspecific Chest Pain Diego Ernandez MD Jul 29, 2019 13:48
== END 2019-07-27 12:45 | disposition home or self-care (01) ==
LOC: EMR 11:30
DX: K21.0 Gastro-esophageal reflux disease with esophagitis (principal); E03.9 Hypothyroidism, unspecified; Z88.0 Allergy status to penicillin; I10 Essential (primary) hypertension; I25.2 Old myocardial infarction
CPT/HCPCS: 36415; 71045; 80053; 81003; 83690; 83880; 84439; 84443; 84484; 85007; 85025; 93005; 99284

== ENCOUNTER 2019-08-10 09:24 | Emergency (ER) | payer MEDICARE, BC ==
[~2019-08-10] VITALS: Ht 162.6 cm; Wt 100.7 kg
[~2019-08-10 09:24] MED LIST changes: +FAMOTIDINE20 MG ORAL
[2019-08-10] MEDS ORDERED: METHIMAZOLE10 MG PO (09:41)
[2019-08-10] MEDS ORDERED: PROPRANOLOL HCL40 MG ORAL (09:41)
[2019-08-10] MEDS ORDERED: HYDROCHLOROTH12.5 MG ORAL (09:41)
--- NOTE | 2019-08-10 09:43 | NUR ---
ED Nurse Note: Pt walked into ED for chest tightness since 0600 this morning. She has chest tightness when she breathes. History of DM, HTN. Pt is alert and ox4, amb. Blood labs sent. EKT taken. Pt states she has been having chest tightness on and off.
[2019-08-10 09:45] VITALS: BP 135/91
--- NOTE | 2019-08-10 09:52 | Emergency Room Report ---
History of Present Illness General Chief Complaint: Chest Pain Source: Patient Present Illness HPI Disclaimer: Please note that this report is being documented using DRAGON technology. This can lead to erroneous entry secondary to incorrect interpretation by the dictating instrument. HPI: 78-year-old female with a history of hypothyroidism, hypertension, hyperlipidemia, diabetes, obesity, CAD status post cardiac stenting and cardiac arrest presents for evaluation of chest tightness. Patient reports midsternal chest tightness beginning this morning when she woke up approximately 6 AM. It has been steadily improving since then. Denied associated shortness of breath, palpitations, pain in general. This tightness was also spread over the epigastrium to some extent and had a burning quality. Patient was recently seen in the emergency department with similar symptoms and had a recent admission 1 month ago. Stress test at that time was interpreted as nonischemic. She has history of hypothyroidism as well and her medications were recently adjusted. She reports no palpitations at this time. She has been taking the Pepcid prescribed to her last ED visit but states symptoms persist. She typically gets these sensations in the morning or after lying flat for extended period time. Denies exertional dyspnea or exertional chest pain. Denies cough, wheezing, shortness of breath, extremity swelling, recent immobilization, history of clots. She was seen by teenage babysitter, Dr. Reis, in his office earlier this week. States recent EKGs and echo as well as stress test performed within the last month have all returned within normal limits. PMH: CAD, hypertension, hypothyroidism, hyperlipidemia, obesity, diabetes PSH: Cardiac stent Allergies: Penicillin Social Hx: Former smoker, quit over 30 years ago Allergies: Coded Allergies: PENICILLINS (Verified Allergy, Intermediate, 07/31/13) SKIN RASH AND HIVES COVID-19 Screening Contact w/high risk pt: No Recent Travel to affected area: No Experienced COVID-19 symptoms?: No COVID-19 symptoms experienced: Shortness of Breath COVID-19 Testing performed LAUNDRY AIDE: Yes COVID-19 Screening: Negative COVID-19 COVID-19 Testing Source: [facility] Patient History Last Menstrual Period: na Nursing Documentation-PMH Past Medical History: No History, Except For Hx Cardiac Problems: Yes - mi, stents Hx Hypertension: Yes Hx Pacemaker: No Hx Asthma: No Hx COPD: No Hx Diabetes: Yes Hx Cancer: No Hx Gastrointestinal Problems: No - thyroid problem Hx Neurological Problems: No Review of Systems All Other Systems: negative except mentioned in HPI Physical Exam Vital Signs Date Time Temp Pulse Resp B/P (MAP) Pulse Ox O2 Delivery O2 Flow Rate FiO2 08/10/19 09:29 98.6 70 18 142/93 (109) 93 Room Air General: Awake and alert, obese female, no acute distress HEENT: NC/AT. EOMI. Cardiovascular: RRR. S1 and S2 normal. No murmur appreciated Resp: Normal work of breathing. No cough, wheezing or crackles appreciated Abdomen: Abdomen is soft, obese, nondistended. Nontender Skin: Intact. No abrasions, laceration or rash over the exposed skin MSK: Normal tone and bulk. Moving all extremities. No obvious deformity. Neuro: Awake and alert. Mentating appropriately. Medical Decision Making Diagnostic Impression: Primary Impression: Hypothyroidism Additional Impressions: Reflux esophagitis Thyroid dysfunction ER Course 78-year-old female history of CAD presents for evaluation of chest discomfort. Differential includes was not limited to angina, arrhythmia, hypothyroidism, electrolyte abnormality, ACS, reflux, gastritis, gastroenteritis, pleurisy, pneumonia, pneumothorax to name a few. She is well-appearing arrives with stable vital signs. She has minimal discomfort at this time. Took aspirin prior to arrival. Initial EKG shows left axis deviation but no signs of acute ischemia and largely unchanged from previous EKGs. Will obtain chest x-ray, cardiac labs, screening labs. Will treat with antacids. Patient was seen by her teenage babysitter 4 days ago had a in office echocardiogram and electrocardiogram which she states were unremarkable. 1300: Labs show elevated TSH and low thyroid hormone levels seen on prior visits. This is currently being adjusted by her medical team. She is seeing her disposal man later this week. Cardiac enzymes negative x2. Chest x-ray unremarkable aside from stable cardiomegaly. Discussed with patient's PMD, Dr. Bell. Given the patient's recent extensive cardiac work-up and description of her symptoms which would suggest reflux the patient will be discharged to follow-up o with her PMD. Further testing and evaluation will be ordered on an outpatient basis. Laboratory Tests Test 08/10/19 09:40 08/10/19 12:25 White Blood Count 13.7 K/UL (4.8-10.8) H Red Blood Count 4.96 M/UL (4.20-5.40) Hemoglobin 14.7 G/DL (12.0-16.0) Hematocrit 46.3 % (37.0-47.0) Mean Corpuscular Volume 93 FL (80-99) Mean Corpuscular Hemoglobin 29.7 PG (27.0-31.0) Mean Corpuscular Hemoglobin Concent 31.8 G/DL (32.0-36.0) L Red Cell Distribution Width 14.8 % (11.6-14.8) Platelet Count 278 K/UL (150-450) Mean Platelet Volume 9.8 FL (6.5-10.1) Neutrophils (%) (Auto) 75.0 % (45.0-75.0) Lymphocytes (%) (Auto) 17.2 % (20.0-45.0) L Monocytes (%) (Auto) 5.4 % (1.0-10.0) Eosinophils (%) (Auto) 1.7 % (0.0-3.0) Basophils (%) (Auto) 0.6 % (0.0-2.0) Prothrombin Time 10.9 SEC (9.30-11.50) Prothrombin Time INR 1.0 (0.9-1.1) Activated Partial Thromboplast Time 27 SEC (23-33) Sodium Level 140 MMOL/L (136-145) Potassium Level 3.6 MMOL/L (3.5-5.1) Chloride Level 104 MMOL/L (98-107) Carbon Dioxide Level 26 MMOL/L (21-32) Anion Gap 10 mmol/L (5-15) Blood Urea Nitrogen 11 mg/dL (7-18) Creatinine 1.1 MG/DL (0.55-1.30) Estimated Glomerular Filtration Rate 58.1 mL/min (>60) Glucose Level 167 MG/DL (74-106) H Calcium Level 9.0 MG/DL (8.5-10.1) Total Bilirubin 0.8 MG/DL (0.2-1.0) Aspartate Amino Transferase (AST) 12 U/L (15-37) L Alanine Aminotransferase (ALT) 10 U/L (12-78) L Alkaline Phosphatase 96 U/L (46-116) Troponin I 0.000 ng/mL (0.000-0.056) 0.002 ng/mL (0.000-0.056) Pro-B-Type Natriuretic Peptide 314 pg/mL (0-125) H Total Protein 7.2 G/DL (6.4-8.2) Albumin 3.1 G/DL (3.4-5.0) L Globulin 4.1 g/dL Albumin/Globulin Ratio 0.8 (1.0-2.7) L Thyroid Stimulating Hormone (TSH) 42.238 uiU/mL (0.358-3.740) Free Thyroxine 0.52 NG/DL (0.76-1.46) L Free Triiodothyronine 1.3 pg/mL (2.3-4.2) L EKG Diagnostic Results EKG Time: 09:39 Rate: normal Rhythm: NSR ST Segments: no acute changes Other Impression Sinus rhythm, left axis deviation, lateral Q waves, no acute ischemic changes. Unchanged from EKG on 07/27/2019 Rhythm Strip Diag. Results Rhythm Strip Time: 09:39 EP Interpretation: yes Rate: 60s Rhythm: no PVC's, no ectopy Chest X-Ray Diagnostic Results Chest X-Ray Diagnostic Results : Chest X-Ray Ordered: Yes # of Views/Limited/Complete: 1 View Indication: Chest Pain Interpretation: no consolidation, no effusion, no pneumothorax, other - Cardiomegaly Impression: No acute disease Electronically Signed by: Electronically signed by Dr. Marco Lord Last Vital Signs Date Time Temp Pulse Resp B/P (MAP) Pulse Ox O2 Delivery O2 Flow Rate FiO2 08/10/19 09:29 98.6 70 18 142/93 (109) 93 Room Air Disposition: HOME, SELF-CARE Condition: Stable Scripts Famotidine* (Pepcid 20mg tablet*) 20 Mg Tablet 20 MG ORAL DAILY, #30 TAB 0 Refills Prov: Marco Lord MD 08/10/19 Marco Lord MD Aug 10, 2019 09:52
[2019-08-10] MEDS ORDERED: Lidocaine 2% Visc 15ml soln ORAL ONE (10:00)
[2019-08-10] MEDS ORDERED: Dicyclomine HCl 10mg/5ml oral soln ORAL ONE (10:00)
[2019-08-10] MEDS ORDERED: Mylanta II UD 30ml ORAL ONE (10:00)
[2019-08-10 10:03] LABS: BASOPHILS % (AUTO) 0.6 % (0.0-2.0); EOSINOPHILS % (AUTO) 1.7 % (0.0-3.0); HEMATOCRIT 46.3 % (37.0-47.0); HEMOGLOBIN 14.7 G/DL (12.0-16.0); LYMPHOCYTES % (AUTO) 17.2 % (20.0-45.0); MEAN CORPUSCULAR VOLUME 93 FL (80-99); MONOCYTES % (AUTO) 5.4 % (1.0-10.0); PLATELET COUNT 278 K/UL (150-450); RED BLOOD COUNT 4.96 M/UL (4.20-5.40); RED CELL DISTRIBUTION WIDTH 14.8 % (11.6-14.8); WHITE BLOOD COUNT 13.7 K/UL (4.8-10.8)
[2019-08-10 10:12] LABS: ANION GAP 10 mmol/L (5-15); BLOOD UREA NITROGEN 11 mg/dL (7-18); CARBON DIOXIDE 26 MMOL/L (21-32); CHLORIDE 104 MMOL/L (98-107); CREATININE 1.1 MG/DL (0.55-1.30); POTASSIUM 3.6 MMOL/L (3.5-5.1); SODIUM 140 MMOL/L (136-145)
[2019-08-10 10:25] LABS: ALANINE AMINOTRANSFERASE 10 U/L (12-78); ALBUMIN 3.1 G/DL (3.4-5.0); ALBUMIN/GLOBULIN RATIO 0.8 (1.0-2.7); ALKALINE PHOSPHATASE 96 U/L (46-116); ASPARTATE AMINO TRANSFERASE 12 U/L (15-37); BILIRUBIN,TOTAL 0.8 MG/DL (0.2-1.0)
--- NOTE | 2019-08-10 11:07 | Diagnostic Imaging Report ---
EXAM: XR Chest, 1 View CLINICAL HISTORY: CP TECHNIQUE: Frontal view of the chest. COMPARISON: Chest radiograph on 07/27/2019 FINDINGS: Hardware: None. Lungs/pleura: Atelectasis or scarring in the left lower lung. Stable elevation of the right hemidiaphragm. Right basilar atelectasis. No other focal consolidation. No pleural effusion or pneumothorax. Heart/mediastinum: Stable mild enlargement of the cardiac silhouette. Soft tissues: Unremarkable. Bones: No acute fracture. Degenerative changes of the acromioclavicular joints and spine. Upper abdomen: Normal. IMPRESSION: 1. No acute disease identified. 2. Stable atelectasis or scarring in the left lower lung. 3. Elevation of the right hemidiaphragm with right basilar atelectasis.
[2019-08-10 12:25] VITALS: BP 125/86
[2019-08-10] MEDS ORDERED: FAMOTIDINE20 MG ORAL (13:10)
--- NOTE | 2019-08-10 13:17 | NUR ---
ER DISCHARGE NOTE: Patient is cleared to be discharged per ERMD, pt is aox4, on room air, with stable vital signs. pt was given dc and prescription instructions, pt was able to verbalize understanding, pt id band and iv site removed without complications. pt is able to ambulate with steady gait with cane. pt took all belongings. Pt educated on nonspecific CP.
[2019-08-10 13:19] VITALS: BP 130/79
== END 2019-08-10 13:26 | disposition home or self-care (01) ==
LOC: EMR 09:55
DX: E03.9 Hypothyroidism, unspecified (principal); K21.0 Gastro-esophageal reflux disease with esophagitis; E07.9 Disorder of thyroid, unspecified; E66.9 Obesity, unspecified; I25.2 Old myocardial infarction; E78.5 Hyperlipidemia, unspecified; I11.9 Hypertensive heart disease without heart failure; I25.10 Atherosclerotic heart disease of native coronary artery without angina pectoris; E11.9 Type 2 diabetes mellitus without complications; Z88.0 Allergy status to penicillin; Z87.891 Personal history of nicotine dependence; Z95.5 Presence of coronary angioplasty implant and graft; I51.7 Cardiomegaly; Z68.38 Body mass index [BMI] 38.0-38.9, adult
CPT/HCPCS: 36415; 71045; 80053; 83880; 84439; 84443; 84481; 84484; 85025; 85610; 85730; 93005; 99284